=== PATIENT | female | born 1985 | race Two or more races ===

== ENCOUNTER 2024-12-30 04:53 | Inpatient (IN) | payer OTHER ==
[~2024-12-30] VITALS: Ht 167.6 cm; Wt 2.7 kg
[2024-12-30] MEDS ORDERED: PRENATABS RX T1 EACH PO (04:58)
[2024-12-30] MEDS ORDERED: NIFEDIPINE20 MG PO (04:59)
[2024-12-30] MEDS ORDERED: TERBUTALINE SU2.5 MG PO (05:00)
[2024-12-30 05:27] VITALS: BP 120/75
[2024-12-30] MEDS ORDERED: RINGERS SOLUTION,LACTATED 1,000 ML IV SCH (06:00)
[2024-12-30] MEDS ORDERED: CEFAZOLIN SODIUM 1,000 MG VIAL IV SCH ×2 (06:00→14:00)
[2024-12-30 06:55] VITALS: BP 119/69; O2SAT 98
[2024-12-30] MEDS ORDERED: BETAMETHASONE ACETATE,SOD PHOS 30 MG/5 ML ML IM NR (08:00)
[2024-12-30] MEDS ORDERED: KETOROLAC TROMETHAMINE 30 MG VIAL IM SCH (10:00)
[2024-12-30] MEDS ORDERED: MORPHINE SULFATE 4 MG/ML VIAL IV ONE (10:55)
[2024-12-30] MEDS ORDERED: PROMETHAZINE HCL 25 MG/ML AMPUL IV SCH (12:00)
[2024-12-30] MEDS ORDERED: MORPHINE SULFATE 2 MG/ML CARTRIDGE IV SCH (12:00)
[2024-12-30 13:17] VITALS: BP 114/70; O2SAT 99
[2024-12-30] MEDS ORDERED: ERYTHROMYCIN BASE OPHT 1GM EACH TUBE OP ONE (14:15)
[2024-12-30] MEDS ORDERED: CARBOPROST TROMETHAMINE 250 MCG/ML AMPUL IM ONE (14:15)
[2024-12-30] MEDS ORDERED: OXYTOCIN 10 UNIT/ML (10ML) IV ONE (14:15)
[2024-12-30 16:00] VITALS: BP 120/79
[2024-12-30 17:41] LABS: BASO % 0.3 % (0.1-1.2); EOS # 0.20 (0.04-0.54); EOS % 0.9 % (0.7-7.0); LYMPH # 1.57 (1.18-3.74); LYMPH % 6.8 % (19.3-53.1); MEAN PLATELET VOLUME 9.60 fl (9.4-12.4); MONO # 1.66 (0.24-0.82); MONO % 7.2 % (4.7-12.5); NEUT # 19.36 (1.56-6.13); NEUT % 83.8 % (34.0-71.1); RED CELL DISTRIBUTION WIDTH 13.2 % (11.6-14.4)
[2024-12-31] MEDS ORDERED: MORPHINE SULFATE 4 MG/ML VIAL IV SCH
[2024-12-31 01:07] VITALS: BP 120/73
[2024-12-31 08:37] VITALS: BP 125/79
[2024-12-31 13:35] VITALS: BP 117/76
[2024-12-31] MEDS ORDERED: NAPROXEN 500 MG TABLET PO SCH (17:00)
[2024-12-31 18:15] VITALS: BP 117/75
[2025-01-01] VITALS: BP 100/63
[2025-01-01 08:05] LABS: BASO % 0.2 % (0.1-1.2); EOS # 0.36 (0.04-0.54); EOS % 2.1 % (0.7-7.0); LYMPH # 1.38 (1.18-3.74); LYMPH % 8.1 % (19.3-53.1); MEAN PLATELET VOLUME 9.80 fl (9.4-12.4); MONO # 1.31 (0.24-0.82); MONO % 7.6 % (4.7-12.5); NEUT # 13.92 (1.56-6.13); NEUT % 81.2 % (34.0-71.1); RED CELL DISTRIBUTION WIDTH 13.2 % (11.6-14.4)
[2025-01-01 08:41] VITALS: BP 123/75
[2025-01-01] MEDS ORDERED: IRON FUM,PS/FOLIC/BCOMP,C NO.9 1 CAP CAPSULE PO SCH (11:35)
== END 2025-01-01 16:18 | disposition home or self-care (01) | DRG 786 ==
LOC: LDR 04:53 → OB/GYN 04:53 → O/R 08:43 → LDR 08:44 → O/R 09:38 → OB/GYN 10:14
PROVIDERS: ADMIT Specialist; ATTEND Specialist
PROC: 0UB90ZZ Excision of Uterus, Open Approach (ICD-10-PCS; 2024-12-30)
PROC: 4A1HXCZ Monitoring of Products of Conception, Cardiac Rate, External Approach (ICD-10-PCS; 2024-12-30)
PROC: 10D00Z1 Extraction of Products of Conception, Low, Open Approach (ICD-10-PCS; principal; 2024-12-30 08:00)
DX: O32.1XX0 Maternal care for breech presentation, not applicable or unspecified (principal); O60.14X0 Preterm labor third trimester with preterm delivery third trimester, not applicable or unspecified; O41.03X0 Oligohydramnios, third trimester, not applicable or unspecified; O34.13 Maternal care for benign tumor of corpus uteri, third trimester; O69.81X0 Labor and delivery complicated by cord around neck, without compression, not applicable or unspecified; D25.0 Submucous leiomyoma of uterus; Z3A.36 36 weeks gestation of pregnancy; Z37.0 Single live birth